=== PATIENT | female | born 1990 | race Hispanic/Latino ===

== ENCOUNTER 2017-07-22 08:15 | Outpatient (CLI) | payer BC ==
--- NOTE | 2017-07-22 13:19 | NM ---
HEPATOBILIARY SCAN: Date: 07/22/17 HISTORY: Abdominal pain. RADIOPHARMACEUTICAL: 5 mCi technetium-99m mebrofenin injected intravenously. FINDINGS: There is good tracer extraction by the liver with prompt excretion into the biliary tract and small b owel loops, and normal filling of the gallbladder. Calculated gallbladder ejection fraction following an oral fatty meal measures 85%. IMPRESSION: Normal exam. POS: JJ
== END 2017-07-22 08:16 | disposition home or self-care (01) ==
LOC: NM 08:15
PROVIDERS: ATTEND Internal Medicine
DX: R10.9 Unspecified abdominal pain (principal); R11.2 Nausea with vomiting, unspecified
CPT/HCPCS: 78227; A9537